=== PATIENT | female | born 1980 | race American Indian/Alaskan Native ===

== ENCOUNTER 2017-08-20 15:52 | Outpatient (CLI) | payer BC ==
--- NOTE | 2017-08-21 12:14 | Ultrasound Report ---
TRANSABDOMINAL AND TRANSVAGINAL PELVIC ULTRASOUND: 08/20/17 15:52:00 CLINICAL: Abnormal vaginal bleeding. FINDINGS: Transabdominal and transvaginal pelvic ultrasound demonstrated an enlarged fibroid uterus measuring approximately 13 x 4.7 x 8.0 cm. A fundal subserosal fibroid measures 5.7 x 3.6 cm. No other measurable fibroids are identified. However, the myometrium is heterogeneous with suggestion of numerous subcentimeter fibroids. The endometrium is normal and measures 7.0 mm AP thickness. An IUD is in normal position within the uterine cavity. The right ovary measures 3.9 x 2.2 x 3.5 cm and contains a dominant complex cyst measuring 1.9 cm. The left ovary measures 4.6 x 4.3 x 2.9 cm and contains a dominant anechoic 3.0 cm cyst. No adnexal mass. No free fluid. Normal urinary bladder. IMPRESSION: 1. Uterine leiomyomata with a dominant 5.7 cm fundal subserosal fibroid. 2. Normal endometrium. 3. Normal position of IUD. 4. A 3 cm left ovarian cyst and a 1.9 cm complex probably hemorrhagic right ovarian cyst.
== END 2017-08-20 15:53 | disposition home or self-care (01) ==
LOC: SPVWC 15:52
PROVIDERS: ATTEND Family Medicine
DX: D25.2 Subserosal leiomyoma of uterus (principal); N83.202 Unspecified ovarian cyst, left side; Z97.5 Presence of (intrauterine) contraceptive device
CPT/HCPCS: 76830; 76856